=== PATIENT | male | born 1930 | race Caucasian/White ===

== ENCOUNTER → 2017-07-11 | Outpatient (CLI) | payer MEDICARE, OTHER ==
[2016-03-24 08:10] VITALS: BP 112/70
[~2017-07-11] MED LIST: AMIO200T PO; ASCO500T2 PO; ASPI-630 PO; CALC500T30 PO; CARV3.12 PO; CARV6.25 PO; CHOL400T55 PO; CLOP75TA57 PO; FERR-26 PO; FLUD0.1T PO; FORM12CA IH; FURO-69 PO; LISI10TA PO; PANT40TA3 PO; POTA10TA12 PO; PROP150T2 PO; SIMV20TA PO; TAMS0.4C2 PO; TIMO5DRO5 EACHEYE; TIOT18CA IH; UBID100T5 PO; ZOLP5TAB PO; alphagan; colace; latanoprost OU; symbicort INH
--- NOTE | 2017-07-11 12:23 | RAD ---
EXAM: CT of the chest without intravenous contrast. HISTORY: Asbestosis, dyspnea. TECHNIQUE: Computed tomography of the chest was performed without intravenous contrast. COMPARISON: 02/02/2016. FINDINGS: Images of the upper abdomen reveal changes of cholecystectomy. There is a stent in the celiac axis, partially visualized. Bone windows reveal no suspicious lesions. A left-sided pacemaker has its leads in the right atrium and right ventricle. There are changes of coronary artery bypass grafting. There are no pathologically enlarged mediastinal or axillary lymph nodes. Calcified mediastinal lymph nodes are likely secondary to old granulomatous disease. The heart is not enlarged. There is diffuse moderate to severe aortic atherosclerotic calcification. The descending aortic is ectatic at 3.8 cm. 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 There are diffuse calcified pleural plaques, not clearly changed. There is moderate paraseptal and centrilobular emphysema. There is some subpleural interstitial change with a basilar predominance. IMPRESSION: 1. 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 2. Mild subpleural interstitial change in the bases is consistent with a component of interstitial lung disease or scarring. 3. Moderate centrilobular and paraseptal emphysema. 4. Diffuse aortic atherosclerosis and mild ectasia. A small ductus bump aneurysm is stable. *One or more of the following individualized dose reduction techniques were utilized for this examination: 1. Automated exposure control. 2. Adjustment of the mA and/or kV according to patient size. 3. Use of iterative reconstruction technique.
== END | disposition home or self-care (01) ==
LOC: CT 11:50
PROVIDERS: ATTEND Internal Medicine Critical Care Medicine
DX: J43.9 Emphysema, unspecified (principal); I70.0 Atherosclerosis of aorta; J84.9 Interstitial pulmonary disease, unspecified; Z77.090 Contact with and (suspected) exposure to asbestos
CPT/HCPCS: 71250

== ENCOUNTER → 2018-08-17 | Outpatient (CLI) | payer MEDICARE, OTHER ==
[2016-03-24 08:10] VITALS: BP 112/70
[~2018-08-17] MED LIST changes: -FERR-26 PO; +FERR325T14 PO
--- NOTE | 2018-08-17 14:17 | RAD ---
CHEST PA LATERAL Clinical indications: SHORTNESS OF BREATH, HX OF FIBROSIS COMPARISON: May 17, 2015. Findings: Multiple bilateral calcified pleural plaques are seen consistent with asbestos exposure. No new lung infiltrate or pleural effusion or pulmonary edema or pneumothorax is seen. Sternotomy and pacemaker are again noted. The heart size, pulmonary vasculature, mediastinum and both nayely are stable. The osseous structures appear intact. Impression: No new radiographic abnormality is seen. Electronically signed by: Cosmo Fuller MD (08/17/2018 2:14 PM) [place] [id number]
== END | disposition home or self-care (01) ==
LOC: RAD 12:44
PROVIDERS: ATTEND Internal Medicine Critical Care Medicine
DX: J84.10 Pulmonary fibrosis, unspecified (principal)
CPT/HCPCS: 71046

== ENCOUNTER 2018-12-17 06:54 | Observation (INO) | payer MEDICARE, OTHER ==
[2018-12-17] VITALS (18 sets, daily range): BP systolic 104–199; BP diastolic 61–101
[~2018-12-17] VITALS: Ht 170.2 cm; Wt 49.0 kg
[~2018-12-17 06:54] MED LIST changes: +BUDE0.5A NEB; +CLOP75TA PO; +GABA300C18 PO; +PENT400T7 PO; +TRAM1TAB4 PO; +TRAZ-118 PO
[2018-12-17] MEDS ORDERED: MIRT30TA3 PO (07:30)
[2018-12-17 07:35] LABS: CALCIUM 8.8 mg/dL (8.5-10.1); CREATININE 1.1 mg/dL (0.7-1.3); GFR 63.2; POTASSIUM 4.3 mmol/L (3.5-5.1)
[2018-12-17] MEDS ORDERED: MIDAZOLAM HCL/PF 2 MG/2 ML VIAL. ONE (07:39)
[2018-12-17 07:40] LABS: BASO # 0.1 x10^3/uL (0.0-0.2); BASO % 1 % (0-3); EOS # 0.3 x10^3/uL (0.0-0.7); EOS % 2 % (0-3); HEMATOCRIT 40.3 % (39.0-53.0); HEMOGLOBIN 13.2 g/dL (13.0-17.5); LYMPH # 1.8 x10^3/uL (1.0-4.8); LYMPH % 16 % (24-48); MEAN CORPUSCULAR HEMOGLOBIN 32 pg (25-35); MEAN CORPUSCULAR HGB CONC 33 g/dL (31-37); MEAN CORPUSCULAR VOLUME 98 fL (79-100); MONO % 9 % (0-9); NEUT # 8.3 x10^3uL (1.8-7.7); NEUT % 72 % (31-73); PLATELET COUNT 288 x10^3/uL (140-400); RED CELL DISTRIBUTION WIDTH 14.1 % (11.5-14.5); WHITE BLOOD COUNT 11.4 x10^3/uL (4.0-11.0)
[2018-12-17] MEDS ORDERED: HEPARIN for IV BOLUS 10,000 UNIT/10 ML VIAL. ONE (07:40)
[2018-12-17] MEDS ORDERED: fentaNYL PF VIAL 100 MCG/2 ML VIAL ONE (07:40)
[2018-12-17 07:42] LABS: PROTHROMBIN TIME PATIENT 12.5 SEC (11.7-14.0)
[2018-12-17] MEDS: IV NORMAL SALINE 1000ML BAG 1,000 ML IV SCH ×2 (08:00→16:50)
[2018-12-17] MEDS ORDERED: IOHEXOL 240 MG/ML 50ML VIAL. ONE (08:02)
[2018-12-17] MEDS ORDERED: IOHEXOL 240 MG/ML 100 ML VIAL. ONE (08:02)
[2018-12-17] MEDS ORDERED: LIDOCAINE WITH 8.4% SOD BICARB 3 ML DISP.SYRIN. ONE ×3 (08:02→08:12)
[2018-12-17] MEDS ORDERED: LIDOCAINE WITH 8.4% SOD BICARB 3 ML DISP.SYRIN. IJ ONE (09:30)
[2018-12-17] MEDS ORDERED: MIDAZOLAM HCL/PF 2 MG/2 ML VIAL. IV ONE (09:30)
[2018-12-17] MEDS ORDERED: HEPARIN for IV BOLUS 10,000 UNIT/10 ML VIAL. IV ONE (09:30)
[2018-12-17] MEDS ORDERED: fentaNYL PF VIAL 100 MCG/2 ML VIAL IV ONE (09:30)
[2018-12-17] MEDS ORDERED: IOHEXOL 240 MG/ML 100 ML VIAL. IJ ONE (09:30)
[2018-12-17] MEDS ORDERED: CONTRAST GIVEN. MC PRN (09:45)
[2018-12-17] MEDS ORDERED: PROTAMINE 50 MG/5 ML VIAL. IV ONE ×2 (09:53→10:00)
[2018-12-17] MEDS ORDERED: LABETALOL 20 MG/4 ML DISP.SYRIN. IVP ONE ×2 (10:00)
[2018-12-17] MEDS ORDERED: MAG HYDROX/ALUMINUM HYD/SIMETH 30 ML ORAL.SUSP PO PRN (11:00)
[2018-12-17] MEDS ORDERED: HYDROcodone/APAP 5/325MG 1 TAB TABLET PO PRN (11:00)
[2018-12-17] MEDS ORDERED: BUDESONIDE 0.5 MG/2 ML NEBU. NEB PRN (11:00)
[2018-12-17] MEDS ORDERED: 0.9 % SODIUM CHLORIDE 10 ML DISP.SYRIN. IV PRN (11:00)
[2018-12-17] MEDS ORDERED: diphenhydrAMINE HCL 25 MG CAPSULE PO PRN (11:00)
[2018-12-17] MEDS ORDERED: CALCIUM CARBONATE 500 MG TAB.CHEW PO PRN (11:00)
[2018-12-17] MEDS ORDERED: NALOXONE 0.4 MG/ML VIAL. IV PRN (11:00)
[2018-12-17] MEDS ORDERED: ONDANSETRON PF 4 MG/2 ML VIAL. IV PRN (11:00)
--- NOTE | 2018-12-17 11:28 | OP ---
DATE OF SURGERY: 12/17/2018 PREPROCEDURE DIAGNOSIS: Intestinal ischemia, chronic, recurrent. POSTPROCEDURE DIAGNOSIS: Intestinal ischemia, chronic, recurrent. PROCEDURE PERFORMED: 1. Visceral arteriogram with selective superior mesenteric arteriography and drug-coated balloon angioplasty of the previously stented superior mesenteric artery origin using a 40 x 6 mm drug-coated balloon. 7-Senegalese Mynx closure device, right groin. 2. Ultrasound-guided access. 3. Failed Mynx closure device, right groin. SURGEON: Brian Ramires MD. ANESTHETIC: Local MAC. INDICATIONS: This is an 88-year-old male with history of significant peripheral vascular disease. He has had a previous endovascular aneurysm repair. He has had a femoropopliteal reconstruction on the right. He has had previous superior mesenteric artery angioplasty and stent placement for chronic visceral ischemia. Over the last several months, he has had increasing problems with postprandial nausea and vomiting with associated weight loss. An ultrasound examination suggested a significant recurrent stenosis in the stented segment of the superior mesenteric artery and confirmed with celiac artery occlusion. 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 Intervention was recommended. DESCRIPTION OF PROCEDURE: After informed consent was obtained, the patient was brought to the laboratory phlebotomist. He was monitored throughout the course of the procedure with blood pressure, EKG, and pulse oximetry. The wounds were prepped and draped in a sterile fashion. Using ultrasound guidance, the common femoral vein was visualized. Micropuncture needle was advanced into the common femoral artery. An 0.014 wire was then advanced into the abdominal aorta. The micropuncture needle was removed and replaced. A 4-Senegalese transition sheath was passed into the external iliac artery. The wire and inner cannula were removed and replaced with an 0.035 guidewire, which was advanced into the distal descending thoracic aorta. The transition sheath was removed and a 5-Senegalese sheath was replaced. UF catheter was then passed over the top of the wire and positioned at the level of mesenteric arteries. A lateral and AP aortography was obtained carefully visualizing the stent and superior mesenteric artery. There appeared to be approximately 50%-60% in-stent restenosis. The distal vessel was widely patent. Once diagnostic superior mesenteric arteriogram was performed, the UF catheter was utilized to engage the superior mesenteric artery with a stiff Glidewire. This was advanced into the distal branches. The UF catheter was removed and the 5-Senegalese sheath was removed. A 6-Senegalese 2.0 guide catheter was then brought on the field and prepped. Passed over the top of the wire and it was then utilized to engage the superior mesenteric artery. The inner cannula was removed. The patient received 4000 units of intravenous heparin. A 6 x 40 drug-coated balloon was brought on to the field. It did not readily pass over the top of the wire and for this reason, a wire exchange was accomplished with an Amplatz Super Stiff wire. A 2.0 guide catheter with the dilator was then utilized to reengage the origin of the superior mesenteric artery at this time. Once the inner dilator was removed, we were able to pass the drug-coated balloon into the superior mesenteric artery with complete overlap into the stented area. The 2.0 guide was withdrawn and the balloon was inflated to 14 atmospheres (6.5 mm in diameter). This was left inflated for 3-1/2 minutes, then deflated. Repeat arteriography showed complete resolution of the area of stenosis in the stented segment of the superior mesenteric artery. The final 20 mL injection in the abdominal confirmed this was widely patent. An oblique view of the sheath entry site was then obtained and it appeared appropriate for a closure device. The 2.0 guide catheter was removed and replaced with a 7-Senegalese sheath into the right femoral artery. A 7-Senegalese Mynx closure device was brought onto the field and deployed. Initially, there appeared to be excellent hemostasis, but then some bleeding ensued. Manual pressure was held. The patient's heparin was partially reversed with protamine 30 mg and manual pressure was held on the groin. The patient tolerated the procedure well. Moved from the laboratory phlebotomist to recovery in stable satisfactory condition. Because of the failure of the Mynx closure device, the patient will be monitored overnight. Total radiation exposure, 6026 milligrays, 13.6 minutes of fluoroscopy. A 160 mL of Visipaque was utilized. BRIAN RAMIRES MD DR: STEVE/lashonda JOB#: [id number] / [id number]
[2018-12-17] MEDS ORDERED: LISINOPRIL 5 MG TABLET. PO ONE (12:00)
[2018-12-17] MEDS ORDERED: CARVEDILOL 3.125 MG TABLET. PO ONE (12:00)
[2018-12-17] MEDS: PANTOPRAZOLE 40 MG TABLET.DR. PO SCH (12:12)
[2018-12-17] MEDS: PROPAFENONE 150 MG TABLET. PO SCH ×2 (12:14→21:30)
[2018-12-17] MEDS: PENTOXIFYLLINE ER 400 MG TABLET.ER. PO SCH (12:14)
[2018-12-17] MEDS: TAMSULOSIN 0.4 MG CAP.ER.24H. PO SCH (12:14)
[2018-12-17] MEDS: POTASSIUM CHLORIDE 10 MEQ TABLET.ER. PO SCH (12:15)
[2018-12-17] MEDS: GABAPENTIN 300 MG CAPSULE. PO SCH ×2 (12:15→21:31)
[2018-12-17] MEDS ORDERED: CLOPIDOGREL BISULFATE 75 MG TABLET ONE (12:21)
--- NOTE | 2018-12-17 13:26 | NUR ---
called Dr. Ramires around 12 noon regarding continued elevated b/p. pt's family stated that his prinivil and coreg had been stopped about a week ago for low b/p. order received to give prinivil 5 mg( half of previous dose) and coreg 3.125mg. by the time meds were sent up from pharmacy his SBP was less than 160 for the first time since the middle of procedure. held prinivil and coreg for now. called report to Tarik STOKES on 2nd floor and discussed all of this with him as well as what was done in procedure. rt groin site is clean and dry. no bleeding or swelling at or around site. feet remain cool but normal color. pedal and post tibial pulses remain dopplerable. pt is A&O x3. denies pain. tolerating po well. transferred to bed and taken up to room 246.
--- NOTE | 2018-12-17 14:51 | NUR ---
SS following for discharge planning. SS reviewed pt chart. Pt is from home with spouse and is currently on room air. Pt has discharge order on the chart for home with self care on 12/18/2018. No discharge needs noted at this time.
[2018-12-17] MEDS: IPRATRPIUM/ALBUTEROL 0.5/2.5MG 3 ML NEBU. NEB SCH ×2 (15:36→19:34)
[2018-12-17] MEDS: FUROSEMIDE 20 MG TABLET PO SCH (16:43)
[2018-12-17] MEDS: TIMOLOL 0.5% OPHTH SOLUTION 5ML BOTTLE. OU SCH (16:43)
[2018-12-17] MEDS ORDERED: MIRTAZAPINE 15 MG TABLET PO SCH (21:00)
[2018-12-17] MEDS ORDERED: traZODone 50 MG TABLET. PO SCH (21:00)
[2018-12-17] MEDS ORDERED: SIMVASTATIN 20 MG TABLET PO SCH (21:00)
[2018-12-17] MEDS ORDERED: CALCIUM CARBONATE 500 MG TABLET PO SCH (21:00)
[2018-12-17] MEDS: FERROUS SULFATE 325 MG TABLET. PO SCH (21:30)
[2018-12-18 03:42] VITALS: BP 163/82
--- NOTE | 2018-12-18 04:09 | NUR ---
[place]asco a sound at 0335 went down bui and found patient sitting on bottom on the ground in the bathroom. No injuries noted or complaints of pain. Vital signs are stable. Patient denies hitting head.
[2018-12-18] MEDS: PANTOPRAZOLE 40 MG TABLET.DR. PO SCH (05:34)
[2018-12-18 07:00] VITALS: BP 145/71
[2018-12-18] MEDS: IPRATRPIUM/ALBUTEROL 0.5/2.5MG 3 ML NEBU. NEB SCH ×2 (07:50→11:47)
[2018-12-18] MEDS: TIMOLOL 0.5% OPHTH SOLUTION 5ML BOTTLE. OU SCH (08:13)
[2018-12-18] MEDS: IV NORMAL SALINE 1000ML BAG 1,000 ML IV SCH (08:13)
[2018-12-18] MEDS: FUROSEMIDE 20 MG TABLET PO SCH (08:14)
[2018-12-18] MEDS: TAMSULOSIN 0.4 MG CAP.ER.24H. PO SCH (08:14)
[2018-12-18] MEDS: FERROUS SULFATE 325 MG TABLET. PO SCH (08:14)
[2018-12-18] MEDS: POTASSIUM CHLORIDE 10 MEQ TABLET.ER. PO SCH (08:14)
[2018-12-18] MEDS: PROPAFENONE 150 MG TABLET. PO SCH (08:15)
[2018-12-18] MEDS: GABAPENTIN 300 MG CAPSULE. PO SCH (08:15)
[2018-12-18] MEDS: PENTOXIFYLLINE ER 400 MG TABLET.ER. PO SCH (08:15)
[2018-12-18] MEDS ORDERED: CLOPIDOGREL BISULFATE 75 MG TABLET PO SCH (09:00)
[2018-12-18 11:19] VITALS: BP 121/71
--- NOTE | 2018-12-18 11:54 | PDOC ---
Provider Note Provider Note Vascular S: Patient seen and examined in room. Patient denies any complaints. Nurse reports fall last pm, patient denies any injury or pain. States "I slipped " O: Awake and alert Vital signs stable, SBP 135 Right femoral access dressing dry and intact, feet warm. Abdomen soft, NTND A/P: Intestinal ischemia, chronic, recurrent s/p: Visceral arteriogram with selective superior mesenteric arteriography and drug-coated balloon angioplasty of the previously stented superior mesenteric artery origin using a 40 x 6 mm drug-coated balloon. 7-Belarusian Mynx closure device, right groin. PT eval, if ok with them will d/c home later today. Follow up with Dr. Ramires January 06 10:00 TERE GONSALEZ APRN Dec 18, 2018 11:54
--- NOTE | 2018-12-18 11:56 | DISCH ---
DISCHARGE INSTRUCTIONS Condition on Discharge Condition on Discharge: Stable Activity After Discharge Activity Instructions for Disc: Resume previous activity, Activity as tolerated Weight Bearing Status after Di: Full weight bearing Diet after Discharge Diet after Discharge: Cardiac Diet Texture: Regular Wound Incision Care Wound/Incision Care: No wound care needed Contacting the DRMary after DC Call your doctor for: If your condition worsens Follow-Up Follow up with: Dr. Ramires January 06 10:00 Treatment/Equipment after DC Adaptive Equipment Issued: Front wheeled TERE Briggs APRN Dec 18, 2018 11:56
--- NOTE | 2018-12-18 15:41 | NUR ---
discharged pt home with self care at 1509 via wheelchair via this RN. pt is in stable condition. pt has all belongings with him. pt received discharge instructions and stated he had no further questions for me. pt states he has a walker prescription at home and will get a walker.
[2018-12-18] MEDS ORDERED: BUDESONIDE 0.5 MG/2 ML NEBU. NEB SCH (20:00)
== END 2018-12-18 15:09 | disposition home or self-care (01) ==
LOC: INTRAD 06:54 → 2 SOUTH 10:00
DX: K55.9 Vascular disorder of intestine, unspecified (principal); I73.9 Peripheral vascular disease, unspecified
CPT/HCPCS: 36415; 37246; 75726; 76937; 80048; 85025; 85610; 85730; 94640; 96374; 96375; 97161; C1760; C1769; C1892; C1894; C2623; G0269; G0378; G0379; J1644; J2250; J3010; J3490; J7030; J7620; J7626; Q9966; 99152; 99153

== ENCOUNTER → 2019-09-24 | Outpatient (CLI) | payer MEDICARE, OTHER ==
[~2019-09-24] MED LIST changes: +MIRT30TA3 PO; -PANT40TA3 PO; +PANT40TA77 PO; -POTA10TA12 PO; +POTASSIUM CHLO10 ME1 PO
--- NOTE | 2019-09-24 19:58 | RAD ---
Examination: CT CHEST WO CONTRAST History: Pulmonary fibrosis. Asbestosis exposure. Comparison/Correlation: 07/11/2017 CT chest without contrast Findings: Axial images of chest were obtained without contrast. Sagittal and coronal reformatted images were provided. Left-sided pacemaker and associated leads are present. Sternal wires and mediastinal clips are present. Numerous calcified pleural plaques are present corresponding to reported history of asbestos exposure. Calcified plaques are noted about the mediastinum similar to the prior exam. Emphysematous involvement of the lung martinez diffusely is noted. Both involving especially the lung bases noted. No pulmonary nodule or mass in the interval. No pleural or pericardial effusion. Bilateral lower lobe bronchiectasis is present. Bibasilar costophrenic sulcus fibrotic findings with honeycombing present. Dependent density within the superior thoracic trachea likely representing retained mucus is present. Calcific involvement of the visualized aorta is present. Calcific involvement especially about the celiac and superior mesenteric arteries is present. Cholecystectomy is evident. Impression: Emphysematous involvement of the lung martinez. Mild honeycombing fibrosis at the costophrenic sulci greater than right. No significant change. Extensive pleural plaque involvement bilaterally is again seen corresponding to the reported history of asbestos exposure. No suspicious new findings. PQRS Compliance Statement: One or more of the following individualized dose reduction techniques were utilized for this examination: 1. Automated exposure control 2. Adjustment of the mA and/or kV according to patient size 3. Use of iterative reconstruction technique Electronically signed by: Jordin Membreno MD (09/24/2019 7:55 PM) [facility]
== END ==
LOC: CT 09:50
PROVIDERS: ATTEND Internal Medicine Critical Care Medicine
DX: J43.8 Other emphysema (principal); J47.9 Bronchiectasis, uncomplicated; J84.10 Pulmonary fibrosis, unspecified; J98.4 Other disorders of lung; J61 Pneumoconiosis due to asbestos and other mineral fibers; F17.200 Nicotine dependence, unspecified, uncomplicated; I11.0 Hypertensive heart disease with heart failure; I50.9 Heart failure, unspecified
CPT/HCPCS: 71250

== ENCOUNTER 2020-05-13 18:00 | Emergency (ER) | payer MEDICARE, OTHER ==
[~2020-05-13] VITALS: Ht 170.2 cm; Wt 57.0 kg
[~2020-05-13 18:00] MED LIST changes: -ASCO500T2 PO; +ASCO500T4 PO
[2020-05-13 18:25] VITALS: BP 132/79
--- NOTE | 2020-05-13 19:20 | RAD ---
Right knee 3 views. HISTORY: Pain 3 views were taken of the right knee. There is extensive vascular calcification. There is no fracture or acute osseous abnormality. There is a trace of joint effusion. IMPRESSION: 1. Extensive vascular calcifications and clips suggesting prior surgery. 2. No fracture or acute osseous abnormality. Electronically signed by: Benedicto Manuel MD (05/13/2020 7:17 PM) [facility]
[2020-05-13] MEDS ORDERED: TRAM50TA PO (19:47)
--- NOTE | 2020-05-13 19:47 | PHYS DOC ---
Past Medical History Past Medical History: Anemia, Arthritis, CHF, Constipation, COPD, GERD, High Cholesterol, Heart Disease, Hypertension, PR Additional Past Medical Histor: PACEMAKER Past Surgical History: Appendectomy, Cholecystectomy, Coronary Bypass Surgery, Pacemaker, Tonsillectomy Additional Past Surgical Histo: open heart, endocardectomy, aortic stent, plate right wrist Smoking Status: Current Every Day Smoker Alcohol Use: None Drug Use: None General Adult EDM: Chief Complaint: KNEE INJURY HPI: HPI: 89-year-old male presents with report of left knee pain status post fall 2 days ago. Patient reports he went to turn and felt his knee "pop ". And subsequently fell onto it. Denies other injury. Denies head trauma or neck pain. Denies loss of consciousness. Denies chest pain, dizziness, or lightheadedness. Patient reports pain worse with any range of motion. Patient does report history of arthritis. Denies known prior injury or prior surgery to that knee. Review of Systems: Review of Systems: Constitutional: Denies fever or chills Eyes: Denies redness or eye pain HENT: Denies nasal congestion or sore throat Respiratory: Denies cough or shortness of breath Cardiovascular: Denies chest pain or palpitations GI: Denies abdominal pain, nausea, or vomiting : Denies dysuria or hematuria Musculoskeletal: Denies back pain; reports left knee pain Integument: Denies rash or skin lesions Neurologic: Denies headache, focal weakness or sensory changes Complete systems were reviewed and found to be within normal limits, except as documented in this note. Allergies: Allergies: Allergies Coded Allergies Type Severity Reaction Last Updated Verified No Known Drug Allergies 04/18/14 No Physical Exam: PE: Constitutional: Well developed, well nourished, no acute distress, non-toxic appearance HENT: Normocephalic, atraumatic Eyes: PERRL, EOMI, conjunctiva normal, no discharge Neck: Normal range of motion, no midline tenderness, supple Cardiovascular: Left PT and DP +2, CR < 2 sec Lungs & Thorax: No respiratory distress, equal chest rise and fall Skin: Warm, dry, no erythema, no rash, no ecchymosis Back: No tenderness, no CVA tenderness Extremities: Left anterior knee tenderness primarily with any range of motion, knee joint appears intact, anterior drawer negative, no edema Neurologic: Alert and oriented X 3, normal motor function, normal sensory function, no focal deficits noted Psychologic: Affect normal, judgment normal Current Patient Data: Vital Signs: Vital Signs Date Time Temp Pulse Resp B/P (MAP) Pulse Ox O2 Delivery O2 Flow Rate FiO2 05/13/20 18:25 97.8 89 16 132/79 (96) 96 Room Air 97.8 EKG: EKG: [] Radiology/Procedures: Radiology/Procedures: PROCEDURE: KNEE LEFT 3V Right knee 3 views. HISTORY: Pain 3 views were taken of the right knee. There is extensive vascular calcification. There is no fracture or acute osseous abnormality. There is a trace of joint effusion. IMPRESSION: 1. Extensive vascular calcifications and clips suggesting prior surgery. 2. No fracture or acute osseous abnormality. Electronically signed by: Benedicto Manuel MD (05/13/2020 7:17 PM) [facility] Course & Med Decision Making: Course & Med Decision Making Pertinent Imaging studies reviewed. (See chart for details) Patient presents status post mechanical trip and fall at home. Reports consistent knee pain worse with range of motion. No deformity appreciated. Limb neurovascularly intact. Joint appears stable. X-ray obtained without acute fracture or dislocation. Ice pack applied. Pain addressed. Job wrap provided for comfort. Patient advised to continue use of walker for support. Patient stable for discharge with outpatient follow-up with PCP/orthopedics. Orthopedic referral provided. Discussed findings and plan with patient and family, who acknowledge understanding and agreement. Justine Disclaimer: Justine Disclaimer: This electronic medical record was generated, in whole or in part, using a voice recognition dictation system. Splinting Splinting : Location: Left knee Pre-Made Type: JOB bandage Pre-Proc Neuro Vasc Exam: normal Post-Proc Neuro Vasc Exam: normal, unchanged from pre-exam Departure Departure Impression: Primary Impression: Left knee pain Qualified Codes: M25.562 - Pain in left knee Disposition: 01 HOME, SELF-CARE Condition: STABLE Referrals: UNKNOWN PCP NAME (PCP) PABLITO ARAGON II, MD Patient Instructions: Knee Pain, [id number], Knee Wraps (Elastic Bandage) and RICE Additional Instructions: Use walker with any ambulation. Scripts Tramadol Hcl (TRAMADOL HCL) 50 Mg Tablet 50 MG PO Q6HRS PRN for PAIN, #14 TAB Prov: LYNDA GRAHAM DO 05/13/20 Justicifation of Admission Dx: Justifications for Admission: Justification of Admission Dx: N/A LYNDA GRAHAM DO May 13, 2020 19:47
[2020-05-13] MEDS ORDERED: traMADol 50 MG TABLET PO ONE (20:00)
== END 2020-05-13 20:15 | disposition home or self-care (01) ==
LOC: ER 18:00
DX: M25.562 Pain in left knee (principal); M19.90 Unspecified osteoarthritis, unspecified site; I11.0 Hypertensive heart disease with heart failure; I50.9 Heart failure, unspecified; J44.9 Chronic obstructive pulmonary disease, unspecified; K21.9 Gastro-esophageal reflux disease without esophagitis; E78.00 Pure hypercholesterolemia, unspecified; F17.200 Nicotine dependence, unspecified, uncomplicated; I25.2 Old myocardial infarction; Z95.0 Presence of cardiac pacemaker; Z90.49 Acquired absence of other specified parts of digestive tract; Z90.89 Acquired absence of other organs; Z98.890 Other specified postprocedural states
CPT/HCPCS: 73562; 99284